=== PATIENT | male | born 1995 | race Caucasian/White ===

== ENCOUNTER 2018-06-22 18:47 | Emergency (ER) | payer OTHER ==
[~2018-06-22] VITALS: Ht 185.4 cm; Wt 108.9 kg
--- NOTE | 2018-06-22 18:59 | ED Head Injury ---
General Chief Complaint: Trauma-Non Activation Stated Complaint: HIT IN HEAD WITH BASEBALL Source: patient Exam Limitations: no limitations History of Present Illness Date Seen by Provider: Jun 22, 2018 Time Seen by Provider: 18:56 Initial Comments To ER reports being struck in the left side of the head just prior to arrival with a baseball. He was at a baseball game, the ball was hit and struck him in the head. He was not wearing a helmet but a baseball. Did not lose consciousness. Denies headache, denies dizziness, denies nausea vomiting or vision changes. There is a large hematoma to the left side of the scalp, small laceration minimal bleeding. Tetanus is up-to-date within the past 5 years. He is from [facility]. Occurred: just prior to arrival Severity: moderate Location: parietal Method of Injury: direct blow Loss of Consciousness: no loss of consciousness Allergies and Home Medications Allergies Coded Allergies: egg (Verified Allergy, Unknown, 06/22/18) Patient Home Medication List Home Medication List Reviewed: Yes Review of Systems Review of Systems Constitutional: see HPI Eyes: No Symptoms Reported Ears, Nose, Mouth, Throat: no symptoms reported Respiratory: no symptoms reported Cardiovascular: no symptoms reported Genitourinary: no symptoms reported Musculoskeletal: no symptoms reported Skin: no symptoms reported Psychiatric/Neurological: No Symptoms Reported Endocrine: No Symptoms Reported Hematologic/Lymphatic: No Symptoms Reported Past Uiaicht-Hglwlw-Rlqssg Hx Patient Social History Recent Foreign Travel: No Contact w/Someone Who Travel: No Physical Exam Vital Signs Vital Signs - First Documented 06/22/18 18:51 Temp 96.9 Pulse 79 Resp 18 B/P (MAP) 163/107 (125) Pulse Ox 99 O2 Delivery Room Air Capillary Refill : Height, Weight, BMI Height: '" Weight: lbs. oz. kg; BMI Method: General Appearance: WD/WN, no apparent distress HEENT: PERRL/EOMI, normal ENT inspection, other (1 cm left parietal scalp laceration with surrounding hematoma) Neck: non-tender, full range of motion Respiratory: no respiratory distress, no accessory muscle use Psychiatric: alert, oriented x 3 Crainal Nerves: normal hearing, normal speech, PERRL Skin: normal color, warm/dry Whitakers Coma Score Best Eye Response: (4) Open Spontaneously Best Verbal Response: (5) Oriented Best Motor Response: (6) Obeys Commands Whitakers Total: 15 Procedures/Interventions Wound Location: Scalp Wound Length (cm): 1 Wound's Depth, Shape: linear Wound Explored: clean Irrigated w/ Saline (ccs): 30 Anesthesia: Lidocaine w/ Epi Volume Anesthetic (ccs): 2 Staple Repair: Stapler 35W 2 rip placed after anesthetizing and irrigated with chlorhexidine/saline solution Progress/Results/Core Measures Results/Orders My Orders Orders - CHEYANNE POP APRN Ct Head Wo (06/22/18 18:53) Lidocaine/Epi 2% 1:100,000 (Xylocaine/Ep (06/22/18 19:00) Medications Given in ED Current Medications Medications Dose Ordered Sig/Robb Route Start Time Stop Time Status Last Admin Dose Admin Lidocaine/ Epinephrine 1 ml ONCE ONCE INJ 06/22/18 19:00 06/22/18 19:01 DC 06/22/18 19:12 1 ML Vital Signs/I&O 06/22/18 18:51 Temp 96.9 Pulse 79 Resp 18 B/P (MAP) 163/107 (125) Pulse Ox 99 O2 Delivery Room Air Departure Impression Primary Impression: Scalp hematoma Qualified Codes: S00.03XA - Contusion of scalp, initial encounter Additional Impression: Scalp laceration Qualified Codes: S01.01XA - Laceration without foreign body of scalp, initial encounter Disposition: 01 HOME, SELF-CARE Condition: Stable Departure-Patient Inst. Decision time for Depature: 20:13 Referrals: NO,LOCAL PHYSICIAN (PCP/Family) Primary Care Physician Patient Instructions: Laceration Repair With [place] (DC) Add. Discharge Instructions: 1. Be a good idea to cover your pillow with a towel tonight in case this bruises you get blood all over the pillow. Return to ER for any concerns. Rip out in 7 days. All discharge instructions reviewed with patient and/or family. Voiced understanding. CHEYANNE POP APRN Jun 22, 2018 18:59
[2018-06-22] MEDS ORDERED: LIDOCAINE/EPI 2% 1:100,00 (XYLOCAINE) 20 ML VIAL INJ ONE (19:00)
--- NOTE | 2018-06-22 20:36 | Diagnostic Imaging Report ---
PROCEDURE: CT head without contrast. TECHNIQUE: Multiple contiguous axial images were obtained through the brain without the use of intravenous contrast. Auto Exposure Controls were utilized during the CT exam to meet ALARA standards for radiation dose reduction. INDICATION: Traumatic head injury sustained when patient was hit in the back of the head with a baseball. COMPARISON: None. FINDINGS: BRAIN: No parenchymal hemorrhage, midline shift or mass effect. Carrasco-white matter differentiation is intact. No acute infarct. No white matter lesions. Ventricles, sulci and basilar cisterns are normal. EXTRA-AXIAL SPACES: No subdural or epidural collections. ORBITS AND PARANASAL SINUSES: Visualized orbits and globes are intact. Visualized paranasal sinuses and mastoid air cells are clear. CALVARIUM AND SOFT TISSUES: The calvarium is intact. No fractures or suspicious bony lesions. There is a small left parietal scalp contusion/hematoma superiorly. IMPRESSION: No acute intracranial pathology. Small left parietal scalp hematoma superiorly, without evidence of underlying calvarial fracture. Dictated by: Dictated on workstation # [id number]
[2018-06-22 20:42] VITALS: BP 158/96
== END 2018-06-22 20:42 | disposition home or self-care (01) ==
LOC: ER 18:49
DX: S01.01XA Laceration without foreign body of scalp, initial encounter (principal); R40.2142 Coma scale, eyes open, spontaneous, at arrival to emergency department; R40.2252 Coma scale, best verbal response, oriented, at arrival to emergency department; R40.2362 Coma scale, best motor response, obeys commands, at arrival to emergency department; W21.11XA Struck by baseball bat, initial encounter; Y93.64 Activity, baseball
CPT/HCPCS: 12001; 70450